=== PATIENT | female | born 1945 | race Hispanic/Latino ===

== ENCOUNTER 2017-04-27 12:45 | Emergency (ER) | payer MEDICARE ==
[~2017-04-27] VITALS: Ht 162.6 cm; Wt 68.0 kg
== END 2017-04-27 18:54 | disposition home or self-care (01) ==
LOC: ED 12:45
DX: S09.90XA Unspecified injury of head, initial encounter (principal); W01.198A Fall on same level from slipping, tripping and stumbling with subsequent striking against other object, initial encounter
CPT/HCPCS: 70450; 99284

== ENCOUNTER 2021-02-15 09:31 | Emergency (ER) | payer MEDICARE ==
[~2021-02-15] VITALS: Ht 157.5 cm; Wt 59.6 kg
[~2021-02-15 09:31] MED LIST: ANASTROZOLE1 MG PO; CALCIUM500 M1 PO; VITAMIN D1000 UNIT PO
[2021-02-15] MEDS ORDERED: AUGMENTIN 875-1 EACH PO (11:28)
== END 2021-02-15 11:53 | disposition home or self-care (01) ==
LOC: ED 09:31
DX: K57.32 Diverticulitis of large intestine without perforation or abscess without bleeding (principal); R93.5 Abnormal findings on diagnostic imaging of other abdominal regions, including retroperitoneum
CPT/HCPCS: 74176; 80053; 81001; 83690; 85025; 96374; 99284-25; J1885; J7030

== ENCOUNTER 2024-11-17 12:59 | Emergency (ER) | payer MEDICARE ==
[~2024-11-17] VITALS: Ht 157.5 cm; Wt 60.0 kg
[~2024-11-17 12:59] MED LIST changes: +AUGMENTIN 875-1 EACH PO
[2024-11-17 15:16] VITALS: BP 147/98
== END 2024-11-17 15:16 | disposition home or self-care (01) ==
LOC: ED 12:59
DX: R22.41 Localized swelling, mass and lump, right lower limb (principal); Z79.899 Other long term (current) drug therapy
CPT/HCPCS: 73560; 93971; 99284